=== PATIENT | male | born 1955 | race Caucasian/White ===

== ENCOUNTER → 2016-09-25 | Outpatient (CLI) | payer MEDICARE | LOC: RAD 12:51 | DX: M54.2 Cervicalgia (principal); M54.9 Dorsalgia, unspecified; M47.812 Spondylosis without myelopathy or radiculopathy, cervical region; M51.34 Other intervertebral disc degeneration, thoracic region; Z98.890 Other specified postprocedural states | CPT/HCPCS: 72050; 72072; 72110 ==

== ENCOUNTER → 2016-10-31 | Outpatient (CLI) | payer MEDICARE | LOC: CT 10-05 14:30 | DX: M25.78 Osteophyte, vertebrae (principal); M99.41 Connective tissue stenosis of neural canal of cervical region; M48.02 Spinal stenosis, cervical region | CPT/HCPCS: 72125 ==

== ENCOUNTER → 2021-09-26 | Outpatient (CLI) | payer MEDICARE ==
[~2021-09-26] MED LIST: ALL DAY ALLERGY10 M2 PO; FLEXERIL 10 MG10 MG PO; IBUPROFEN800 MG PO; INDERAL TAB 1010 MG PO; KLONOPIN1 MG PO; NEURONTIN 100100 MG PO; PROTONIX40 MG PO; SEROQUEL TAB 2525 MG PO; SERTRALINE HCL50 MG PO
== END ==
LOC: KOH-I 15:59
DX: R42 Dizziness and giddiness (principal)
CPT/HCPCS: 70450

== ENCOUNTER → 2021-10-04 | Outpatient (CLI) | payer MEDICARE | LOC: RAD 13:35 | DX: R05.9 Cough, unspecified (principal); M54.2 Cervicalgia; M54.6 Pain in thoracic spine; M54.50 Low back pain, unspecified; Z98.1 Arthrodesis status; M47.812 Spondylosis without myelopathy or radiculopathy, cervical region; M47.814 Spondylosis without myelopathy or radiculopathy, thoracic region; M47.816 Spondylosis without myelopathy or radiculopathy, lumbar region | CPT/HCPCS: 71046; 72050; 72072; 72110 ==